=== PATIENT | male | born 1990 | race Hispanic/Latino ===

== ENCOUNTER 2016-12-25 09:30 | Emergency (ER) | payer SELFPAY ==
[~2016-12-25] VITALS: Ht 165.1 cm; Wt 75.0 kg
[2016-12-25 10:16] VITALS: BP 144/94
[2016-12-25] MEDS ORDERED: DIFLUCAN150 MG PO (10:18)
[2016-12-25] MEDS ORDERED: SB CLOTRIMAZ1 % EX (10:18)
== END 2016-12-25 10:20 | disposition home or self-care (01) | DRG 730 ==
LOC: ED 09:30
DX: N48.89 Other specified disorders of penis (principal)

== ENCOUNTER 2017-02-07 09:32 | Emergency (ER) | payer SELFPAY ==
[~2017-02-07] VITALS: Ht 165.1 cm; Wt 75.0 kg
[~2017-02-07 09:32] MED LIST: DIFLUCAN150 MG PO; SB CLOTRIMAZ1 % EX
[2017-02-07] MEDS ORDERED: DOXYCYC MONO100 M1 PO (10:09)
[2017-02-07] MEDS ORDERED: SB CLOTRIMAZ1 % EX (10:09)
[2017-02-07 10:15] VITALS: BP 129/78
== END 2017-02-07 10:15 | disposition home or self-care (01) | DRG 730 ==
LOC: ED 09:32
DX: S31.21XA Laceration without foreign body of penis, initial encounter (principal); X58.XXXA Exposure to other specified factors, initial encounter